=== PATIENT | male | born 1965 | race Hispanic/Latino ===

== ENCOUNTER 2020-07-11 07:22 | Inpatient (IN) | payer OTHER, SELFPAY ==
[2020-07-11 08:07] LABS: Hemoglobin 7.7 g/dL (14.0-18.0); Mean Corpuscular Hemoglobin 44.2 pg (27.0-31.0); RBC Distribution Width 23.7 % (11.5-14.5); Red Blood Cell (RBC) Count 1.74 mill/uL (4.70-6.10)
[2020-07-11 08:22] LABS: ALT (SGPT) 34 U/L (8-55); AST (SGOT) 55 U/L (5-34); Albumin 4.6 g/dL (3.5-5.0); Alkaline Phosphatase 51 U/L (40-110); Anion Gap 15 mmol/L (10-20); BUN (Urea Nitrogen) 19 mg/dL (8.4-25.7); Bilirubin, Total 2.4 mg/dL (0.2-1.2); Calc. Creatinine Clearance 0 mL/min (70-130); Calcium 8.8 mg/dL (7.8-10.44); Carbon Dioxide 25 mmol/L (22-29); Chloride 104 mmol/L (98-107); Globulin 2.7 g/dL (2.4-3.5); Glucose 109 mg/dL (70-105); Lipase 16 U/L (8-78); Potassium 3.6 mmol/L (3.5-5.1); Protein, Total 7.3 g/dL (6.0-8.3); Sodium 140 mmol/L (136-145)
[2020-07-11 08:31] LABS: Bilirubin 1+ (Negative); Blood, Urine Trace (Negative); Clarity Clear (Clear); Glucose, Urine (Dipstick) Normal (Negative); Ketone, Urine 150 mg/dL (Negative); Leukocyte Negative Leu/uL (Negative); Nitrite Negative (Negative); Protein, Urine (Dipstick) 100 mg/dL (Neg-Trace); RBC/HPF 0-3 HPF (0-3); Specific Gravity, Urine 1.031 (1.002-1.036); Squamous Epithelial None Seen HPF (0-3); Urobilinogen 6 mg/dL (Less than 2)
[2020-07-11 08:41] LABS: Bacteria/HPF 1+ HPF (None Seen)
[2020-07-11 08:47] LABS: #Lymphocytes 0.9 thou/uL (1.20-3.40); #Monocytes 0.1 thou/uL (0.11-0.59); #Neutrophils 2.1 thou/uL (1.40-6.50); %Basophils 0.7 % (0.0-1.0); %Eosinophils 1.2 % (0.0-10.0); %Lymphocytes 29.8 % (21.0-51.0); %Monocytes 2.6 % (0.0-10.0); %Neutrophils 65.7 % (42.0-75.0); Anisocytosis MODERATE=16-30 cells (100X) (0-5/hpf); MDiff Complete? YES; Macrocytosis MODERATE=16-30 cells (100X) (0-5/hpf); Microcytosis SLIGHT = 6-15 cells (100X) (0-5/hpf); Platelet Count 134 thou/uL (130-400); Polychromasia SLIGHT = 2-3 cells (100X) (0-2/hpf); Target Cells SLIGHT = 2-5 cells (100X) (0-1/hpf); Tear Drops SLIGHT = 2-5 cells (100X) (0-1/hpf); White Blood Cell (WBC) Count 3.2 thou/uL (4.8-10.8)
--- NOTE | 2020-07-11 09:25 | CT ---
CT OF THE ABDOMEN AND PELVIS WITH IV CONTRAST INDICATION: Nausea and vomiting COMPARISON: None FINDINGS: ABDOMEN: Lung bases: Clear Liver: No focal lesion. Gallbladder: Normal appearing. Pancreas: Normal. Adrenal glands: Normal. Spleen: Normal. Kidneys and ureters: There is a tiny subcentimeter hypodensity involving the mid right kidney that is difficult characterize due to its size. No hydronephrosis is evident. Vasculature: Normal. Lymph nodes:No lymphadenopathy. Free fluid in abdomen:No free fluid is evident. PELVIS: Small and large bowel: There is a mild amount retained stool within the colon. Small bowel is of norm al caliber. Visualized stomach reveals no definite acute abnormality. Appendix:Normal Bladder: Normal. Rectal and perirectal soft tissues:Normal. Reproductive structures: Prostate gland is enlarged measuring 5.8 cm. Free fluid in pelvis: Minimal to mild free fluid Lymphadenopathy pelvis: No lymphadenopathy is evident. Osseous structures: No acute osseous abnormality. No destructive osteolytic or osteoblastic lesion i s identified. There is scattered degenerative and osteoarthritic changes. Soft tissues:Normal. IMPRESSION: 1. No acute abnormality. 2. Tiny right mid renal hypodensity, difficult characterize due to its size. 3. Mild amount retained stool within colon. 4. Prostate enlargement.
[2020-07-11 11:09] LABS: Bilirubin, Direct 0.9 mg/dL (0.1-0.3); Bilirubin, Total 2.4 mg/dL (0.2-1.2)
[2020-07-11] MEDS ORDERED: Ondansetron PF 4 MG/2 ML Vial ONE (12:03)
[2020-07-11] MEDS ORDERED: Ondansetron ODT 4 MG TAB PO PRN (12:27)
[2020-07-11] MEDS ORDERED: Pantoprazole 40 MG VIAL IVP SCH (13:00)
--- NOTE | 2020-07-11 13:17 | HP ---
CHIEF COMPLAINT: Vomiting. PRIMARY CARE PROVIDER: Annie Garrett MD HISTORY OF PRESENT ILLNESS: This is a 55-year-old male with history of coronary artery disease and 4-vessel bypass in 2013, hypertension, dyslipidemia, who presents to the emergency room today with nausea and vomiting. The history is obtained from the patient and his , who report that it has been going on for a month. He denies any precipitating factors or relieving factors. They report that it started slowly and has increased to the point that he has been unable to take anything by mouth since yesterday. He denies any pain, denies any diarrhea or constipation. He tried to take Pepto-Bismol a few times and denies any relief. He does not note any chest pain except from soreness in the lower part of his chest from vomiting. He denies any shortness of breath. The patient denies any prior evaluation of the GI tract. He notes a few days ago, having dysuria, however, that has resolved. He also noticed a few days ago, having burning in his throat with the aspirin. There have been no other symptoms. In the emergency room, the patient received 8 mg IV Zofran, 1 L of normal saline, and Hospitalist called for admission. ALLERGIES: NO KNOWN DRUG ALLERGIES. CURRENT MEDICATIONS: Reconciled with the patient. 1. Aspirin 325 mg daily. 2. Lovastatin 10 mg in the evening. 3. Atenolol 25 mg daily. 4. Fish oil 2 tablets daily. PAST MEDICAL HISTORY: 1. Hypertension. 2. Dyslipidemia. 3. History of [place] and CABG in 2013. PAST SURGICAL HISTORY: CABG, 4-vessel in 2013. SOCIAL HISTORY: The patient is and his is his surrogate decision maker, he is a full code. He denies any alcohol or tobacco. FAMILY HISTORY: Negative for any gastrointestinal problems. REVIEW OF SYSTEMS: Negative for chest pain, shortness of breath, fevers, or chills. Positive for the dysuria that has resolved and the burning in his throat with aspirin a few times. All remaining review of systems is reviewed and negative. PHYSICAL EXAMINATION: VITAL SIGNS: Blood pressure 117/76, pulse 69, respirations 19, temperature 98, sat is 100% on room air. GENERAL: Awake, alert, responsive, not in apparent distress. Able to speak in full sentences. HEENT: Tympanic membranes are translucent. His pupils are equal and round, he does have some slight scleral icterus. Oral mucosa is pink and moist. NECK: Supple, nontender. LYMPHATICS: No palpable cervical or supraclavicular lymphadenopathy. LUNGS: Clear to auscultation bilateral with good air movement. HEART: Normal S1, S2. Regular rate and rhythm. No significant murmur. ABDOMEN: Soft. Present bowel sounds. Nontender, nondistended. SKIN: No visible rashes. EXTREMITIES: No clubbing, cyanosis, or edema. VASCULAR: 2+ dorsalis pedis pulses. NEUROLOGIC: No focal deficits. PSYCH: Appears euthymic. LABORATORY DATA: CBC; 3.2, 7.7, 21.4, 134. Chemistry; 140, 3.6, 104, 25, 19, 0.74, 109. T-bilirubin 2.4, AST 55, ALT 34, alkaline phosphatase 51, total protein 7.3, albumin 4.6. EKG is personally reviewed, sinus rhythm, normal axis, QT corrected 452, normal DC and QRS intervals. Abnormal R-wave progression. No ST changes. Urinalysis; present protein and ketones, 1+ bilirubin, positive urobilinogen, 4 to 6 white blood cells, 1+ bacteria. CT abdomen and pelvis, which shows no acute abnormality, tiny right mid renal hypodensity, difficult to characterize due to size, mild amount of retained stool within the colon, and prostate enlargement. IMPRESSION: 1. Nausea, vomiting, unable to take p.o., of unknown etiology. Differential diagnosis includes gastritis and ulcer process. 2. Leukopenia and anemia, of unknown chronicity and etiology. 3. Hypertension, controlled. 4. Dyslipidemia. 5. Elevated bilirubin and mildly elevated AST. PLAN: 1. Inpatient status in the hospital. 2. With the patient's cardiac history, we will monitor on telemetry. 3. IV fluid hydration, Zofran as needed. Consultation with GI as endoscopy is anticipated. 4. We will start IV Protonix. 5. Continue the atenolol with hold parameters. 6. We will hold the statin, aspirin, and fish oil for now. 7. Check folic acid, vitamin B12, iron, ferritin levels, as well as guaiac stool given the anemia. 8. Anticipated length of stay is at least 2 midnights given the severity of nausea and vomiting at time of admission. 9. DVT prophylaxis with SCDs. 10. GI prophylaxis as noted above. We will use IV Protonix as treatment. 11. Code status is full. Surrogate decision maker is the patient's as noted above. Reviewed the plan of care with the patient and his who demonstrate understanding. No questions or further needs at the end of evaluation. Job ID: [id number]
[2020-07-11] MEDS ORDERED: Iopamidol-370 76% 500 ML 1 ML ONE (13:38)
[2020-07-11] MEDS: Sodium Chloride 0.9% 1,000 ML IV SCH (15:37)
[2020-07-11 16:05] LABS: Troponin I Less than 0.010 ng/mL (< 0.028)
[2020-07-11] MEDS: Ondansetron PF 4 MG/2 ML Vial IVP PRN (17:33)
--- NOTE | 2020-07-11 18:35 | CON ---
DATE OF CONSULTATION: 07/11/2020 CONSULTING PHYSICIAN: Radha Garcia MD REASON FOR CONSULTATION: Vomiting. HISTORY OF PRESENT ILLNESS: Mr. Bolanos is a pleasant 55-year-old gentleman from [facility], who for the past couple months has been having vomiting intermittently. It has gotten to the point over the past several days he has not been able to hold down any food or liquids. He would eat and had a little bit of a sour feeling in his stomach or some discomfort and then vomit. This would be food or liquids. More recently, it was just bile. He has lost about 20 pounds over the past month. He has had no hematemesis, melena, or hematochezia. He may have a little bit of reflux at times. He has not sought care for this. He typically sees Dr. Garrett, his primary doctor, but has not been to see her this year. He does have a prior history of bypass in 2013, hypertension, and dyslipidemia. He denies any history of melena, hematochezia, hematemesis, or dysphagia. He denies any chest pain, shortness of breath, or dyspnea on exertion. He has been working as a branch controller. He denies any pain or change in bowel function. His bowels have been moving fine. His admission H and P notes he has tried Pepto-Bismol a few times, not having any discomfort. He vomits a lot and his upper abdomen will be sore. He denies any prior history of ulcers, family history of stomach cancers, or personal history of stomach disorders. He had a CAT scan in the emergency room, which was nondiagnostic. He notes when he does take his aspirin, he does get some burning in his throat at times. In the emergency room, he received some IV fluids and some Zofran. He has been admitted for further evaluation. ALLERGIES: NONE KNOWN. MEDICATIONS: 1. Aspirin. 2. Losartan. 3. Atenolol. 4. Fish oil. 5. Tenormin. 6. Zofran. 7. Protonix 40 IV daily. 8. Normal saline at 100. PAST MEDICAL HISTORY: Hypertension, dyslipidemia, [place] and CABG in 2013. PAST SURGICAL HISTORY: Four-vessel bypass in 2013, no other surgeries. SOCIAL HISTORY: The patient is . His is at the bedside. He works as a supervisor [employer]. He does not drink, smoke, or use drugs. FAMILY HISTORY: Negative for gastric cancer, colon cancer, or GI disorders. No diabetes. REVIEW OF SYSTEMS: As per HPI, otherwise negative for shortness of breath, dyspnea on exertion, chest pain, swelling, edema, or orthopnea. PHYSICAL EXAMINATION: VITAL SIGNS: Temperature is 99, pulse 68, blood pressure 130/70. GENERAL: He is well nourished, well developed, in no distress. LUNGS: Clear. HEART: Regular rate and rhythm without clicks or murmurs. ABDOMEN: Soft and nontender. There is no palpable hepatosplenomegaly. No hernias or masses. There is no adenopathy in the inguinal areas, neck, or supraclavicular areas. There is no muscle wasting. EXTREMITIES: No clubbing, cyanosis, or edema. SKIN: Warm and dry. LABORATORY DATA: White count 3.2; hemoglobin 7.7, it was 15 in 2014; MCV 123; platelet count 134; differential normal. Sodium 140, potassium 3.6, BUN and creatinine 19 and 0.7, glucose 109, bilirubin 2.4, AST 55, ALT 34, alkaline phosphatase 51. On 03/05, bilirubin 1.3. No records of previous fractionation of bilirubin. TSH was 0.8 in 2018. TSH was 1 in 2015. Lipase 16 today. Direct bilirubin 0.9. ASSESSMENT: 1. Severe nausea, vomiting, and inability to hold anything down. Etiology is unclear. CAT scan showed no overt causes. 2. Leukopenia, anemia, and macrocytosis. B12 deficiency will be a concern. 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 The patient denies alcohol use. RECOMMENDATIONS: EGD tomorrow. B12, folate, and thiamine. Upper endoscopy tomorrow. Concerns would include gastric cancer, ulcers, and gastric lymphoma, although imaging studies show no signs of malignancy. Ulcer disease is possible as well with pyloric stenosis. Biliary tract disease would be a concern as well, although no stones were seen on CT. If we do not find anything on the upper endoscopy, consider ultrasound. My review of the CT shows no overt abnormalities, atypical thickening, or adenopathy in the upper abdomen. Pancreas is mildly generous in size, but there are no discrete or focal masses. Job ID: [id number]
[2020-07-11 19:14] LABS: Troponin I Less than 0.010 ng/mL (< 0.028)
[2020-07-11] MEDS ORDERED: Metoclopramide HCl 10 MG/2 ML VIAL IVP PRN (19:43)
--- NOTE | 2020-07-11 19:44 | PDOC.BPN ---
- Brief Progress Note Encounter Date: 07/11/20 Encounter Time: 19:43 Message sent by nurse that pt continues to have n/v. I ordered prn reglan, and prn zofran was ordered on admission. Pt to have an EGD tomorrow.
[2020-07-12 00:22] LABS: SARS-CoV-2 MS2 Positive; SARS-CoV-2 N Gene Negative; SARS-CoV-2 S Gene Negative; SARS-CoV-2 by NAA Not Detected (NotDetected); SARS-CoV-2 orf1ab Negative
[2020-07-12] MEDS: Sodium Chloride 0.9% 1,000 ML IV SCH ×4 (01:36→19:59)
[2020-07-12] MEDS: Ondansetron PF 4 MG/2 ML Vial IVP PRN ×2 (03:33→23:40)
[2020-07-12 04:49] LABS: #Eosinphils 0.1 thou/uL (0.0-0.7); #Lymphocytes 1.1 thou/uL (1.20-3.40); #Monocytes 0.1 thou/uL (0.11-0.59); #Neutrophils 1.9 thou/uL (1.40-6.50); %Basophils 0.1 % (0.0-1.0); %Eosinophils 1.8 % (0.0-10.0); %Lymphocytes 35.1 % (21.0-51.0); %Monocytes 2.7 % (0.0-10.0); %Neutrophils 60.2 % (42.0-75.0); Hemoglobin 6.6 g/dL (14.0-18.0); Mean Corpuscular HGB CONC 34.7 g/dL (32.0-36.0); Mean Corpuscular Hemoglobin 42.6 pg (27.0-31.0); Mean Platelet Volume 11.6 fL (7.4-10.4); Platelet Count 127 thou/uL (130-400); RBC Distribution Width 23.6 % (11.5-14.5); Red Blood Cell (RBC) Count 1.54 mill/uL (4.70-6.10); White Blood Cell (WBC) Count 3.2 thou/uL (4.8-10.8)
[2020-07-12 05:05] LABS: Anion Gap 15 mmol/L (10-20); BUN (Urea Nitrogen) 15 mg/dL (8.4-25.7); Calc. Creatinine Clearance 131 mL/min (70-130); Carbon Dioxide 20 mmol/L (22-29); Chloride 108 mmol/L (98-107); Glucose 66 mg/dL (70-105); Iron 184 ug/dL (65-175); Potassium 3.4 mmol/L (3.5-5.1); Sodium 140 mmol/L (136-145)
[2020-07-12 05:29] LABS: Ferritin 554.21 ng/mL (22-322); Vitamin B12 Less than 109 pg/mL (211-911)
[2020-07-12] MEDS: Pantoprazole 40 MG VIAL IVP SCH (08:00)
[2020-07-12] MEDS: Atenolol 25 MG TAB PO SCH (08:00)
[2020-07-12] MEDS ORDERED: FLU VACC QS2020-21(6MOS UP)/PF 60 MCG/0.5 ML SYRINGE IM ONE (09:00)
[2020-07-12 09:52] LABS: Iron 193 ug/dL (65-175); Iron Binding Capacity, Total 239 mcg/dL (261-462)
[2020-07-12] MEDS ORDERED: Lidocaine 1% PF 5 ML VIAL ONE (11:06)
[2020-07-12] MEDS ORDERED: PROPOFOL 200 MG/20 ML VIAL ONE (11:06)
[2020-07-12] MEDS ORDERED: Cyanocobalamin 1000 MCG/ML VIAL IM SCH (12:00)
--- NOTE | 2020-07-12 12:00 | PDOC.HOSPP ---
- Subjective Encounter Date: 07/12/20 Encounter Time: 11:59 Subjective: Mr. Bolanos was seen today in follow-up of nausea and vomiting, weight loss and severe anemia. He says the nausea is a little better. He denies abdominal pain. Symptoms have been for the past month. - Objective Vital Signs & Weight: Vital Signs (12 hours) Temp Pulse Pulse Resp BP BP Pulse Ox 07/12/20 11:03 98.7 F 67 18 112/62 99 07/12/20 10:51 98.4 F 66 16 122/67 07/12/20 10:46 98 F 65 16 112/64 99 07/12/20 07:57 98 F 63 14 116/59 L 96 07/12/20 03:27 98.5 F 66 16 91/54 L Weight Weight 160 lb 9 oz I&O: 07/11/20 07/12/20 07/13/20 06:59 06:59 06:59 Intake Total 230 0 Output Total 0 Balance 230 0 Result Diagrams: 07/12/20 04:19 07/12/20 04:19 Hospitalist ROS - Medication Medications: Active Medications Generic Name Dose Route Start Last Admin Trade Name Freq PRN Reason Stop Dose Admin Atenolol 25 mg 07/12/20 09:00 07/12/20 08:00 Atenolol 25 Mg Tab PO Not Given DAILY LOCO Sodium Chloride 1,000 mls @ 100 mls/hr 07/11/20 12:30 07/12/20 08:03 Normal Saline 0.9% IV Not Given .Q10H LOCO Metoclopramide HCl 5 mg 07/11/20 19:43 07/11/20 20:18 Metoclopramide Hcl 10 Mg/2 Ml Vial IVP 5 mg Q6H PRN Administration Nausea/Vomiting Ondansetron HCl 4 mg 07/11/20 12:27 07/12/20 03:33 Ondansetron Pf 4 Mg/2 Ml Vial IVP 4 mg Q6H PRN Administration Nausea/Vomiting Pantoprazole Sodium 40 mg 07/12/20 09:00 07/12/20 08:00 Pantoprazole 40 Mg Vial IVP 40 mg DAILY LOCO Administration - Exam Eye: PERRL, anicteric sclera Heart: RRR, no gallops, normal peripheral pulses, murmur present (slight flow murmur), II/IV Respiratory: CTAB, no wheezes, no rales, no ronchi, normal chest expansion Gastrointestinal: soft, non-tender, non-distended, normal bowel sounds, no palpable masses, no hepatomegaly Extremities: no cyanosis, no clubbing, no edema Hosp A/P (1) Nausea and vomiting Code(s): R11.2 - NAUSEA WITH VOMITING, UNSPECIFIED Status: Acute (2) Macrocytic anemia with vitamin B12 deficiency Code(s): D51.9 - VITAMIN B12 DEFICIENCY ANEMIA, UNSPECIFIED Status: Acute (3) Weight loss Status: Chronic (4) Hypertension Code(s): I10 - ESSENTIAL (PRIMARY) HYPERTENSION Status: Chronic (5) CAD (coronary artery disease) Code(s): I25.10 - ATHSCL HEART DISEASE OF [place] CORONARY ARTERY W/O ANG PCTRS Status: Acute (6) Hypokalemia Code(s): E87.6 - HYPOKALEMIA Status: Acute - Plan * Nausea and vomiting with Weight loss- ? etiology- symptoms are a bit better controlled. Plan is for EGD today * Macrocytic anemia- his B12 level is low. This may be due to poor oral intake, given the nausea and vomiting for the past month. with limited oral inatke Will give a dose of vitamin B12 IM today * HTN- blood pressure is stable * CAD- stable * Hypokalemia- from GI losses- will replace
[2020-07-12] MEDS ORDERED: Ondansetron HCl/PF 4 MG/2 ML Vial IVP PRN (14:03)
[2020-07-12] MEDS ORDERED: Promethazine HCl 25 MG/ML VIAL IM PRN (14:03)
[2020-07-12] MEDS ORDERED: Promethazine HCl 25 MG/ML VIAL SLOW IVP PRN (14:03)
--- NOTE | 2020-07-12 16:24 | OP ---
DATE OF PROCEDURE: 07/12/2020 PREPROCEDURE DIAGNOSES: 1. Weight loss. 2. Nausea and vomiting, early satiety. Labs here showed severe anemia with an MCV of 120 and a low B12 of 109, normal folate, iron elevated at 184, with a ferritin of 661. ANESTHESIA: TIVA. PROCEDURE PERFORMED: Esophagogastroduodenoscopy with biopsy. POSTPROCEDURE DIAGNOSES: 1. Normal esophagus with normal relaxation of lower esophageal sphincter. No evidence of esophagitis or achalasia. 2. Normal stomach in forward and retroflexed views. Random biopsies were taken from the body and antrum of the stomach and submitted to Pathology. There are some submucosal areas of hemorrhage in the cardia, consistent with emetogenic injury. There is normal distention with no signs of infiltrative disease. 3. Duodenum with slight scalloping in the bulb and the proximal second portion of the duodenum. Biopsies taken to rule out celiac. 4. Normal duodenum to the third portion otherwise. RECOMMENDATIONS: 1. IV PPI. 2. Aggressive iron replacement. 3. Await biopsies. 4. If symptoms persist, consider upper GI small bowel follow through, or evaluation for other causes of nausea, vomiting HIDA scan. PROCEDURE IN DETAIL: After the patient was informed of the risks, benefits, and possible complications of endoscopy including perforation, reaction to medication, and aspiration, informed consent was obtained. The patient was brought to endoscopy suite, where he was sedated in gradual fashion. Once he was comfortable, a bite-block was placed in the incisural orifice. The endoscope was advanced into the esophagus, stomach, into the second and third portions of the duodenum and slowly removed. There was good visualization of the mucosa. There was no mass, lesions, or AV malformations identified in the esophagus, stomach, or duodenum except for some mild villous blunting in the bulb and proximal second portion of the duodenum, which were biopsied. There were no signs of obstruction distally with clear bile emanating from the ampulla and migrating distally into the bowel. There were no retained contents in the stomach and there was normal distensibility of the stomach. The stomach was normal in forward and retroflexed views. Biopsies were taken from the body of the stomach and antrum in light of the B12 deficiency. Retroflexed views showed no evidence of lesions at the GE junction and again normal distensibility of the proximal stomach with no signs of infiltrative process. The scope was removed. The patient tolerated the procedure well. There were no complications. Job ID: [id number]
--- NOTE | 2020-07-12 16:57 | RAD ---
RADIOGRAPH CHEST 2 VIEWS: DATE: 07/12/2020 HISTORY: 55-year-old male with 20 pound weight loss FINDINGS: The lungs are clear. The cardiomediastinal silhouette and hilar shadows appear normal. There is no pl eural effusion or pneumothorax. There are sternal wires. IMPRESSION: 1) evidence of previous open-heart surgery. 2) no evidence of active disease
[2020-07-13] MEDS: Sodium Chloride 0.9% 1,000 ML IV SCH ×2 (02:45→16:53)
[2020-07-13 05:31] LABS: Anion Gap 14 mmol/L (10-20); BUN (Urea Nitrogen) 10 mg/dL (8.4-25.7); Calc. Creatinine Clearance 139 mL/min (70-130); Calcium 7.7 mg/dL (7.8-10.44); Carbon Dioxide 21 mmol/L (22-29); Chloride 105 mmol/L (98-107); Glucose 87 mg/dL (70-105); Potassium 3.2 mmol/L (3.5-5.1); Sodium 137 mmol/L (136-145)
[2020-07-13 05:41] LABS: Syphilis Antibody Nonreactive (Nonreactive); Syphilis Antibody Index 0.05 S/CO (<1.00 Non-Reactive)
[2020-07-13 06:02] LABS: Band 15 % (5-11); Hemoglobin 7.2 g/dL (14.0-18.0); Lymphocytes 10 % (21-51); MDiff Complete? YES; Mean Corpuscular HGB CONC 35.9 g/dL (32.0-36.0); Mean Corpuscular Hemoglobin 41.4 pg (27.0-31.0); Mean Platelet Volume 11.6 fL (7.4-10.4); Metamyelocyte 1 % (0-0); Monocytes 1 % (0-10); Neutrophil 73 % (42-75); Platelet Count 114 thou/uL (130-400); Platelet Morphology Comment Appears Decreased; Red Blood Cell (RBC) Count 1.74 mill/uL (4.70-6.10); White Blood Cell (WBC) Count 9.5 thou/uL (4.8-10.8)
[2020-07-13] MEDS: Atenolol 25 MG TAB PO SCH (08:46)
[2020-07-13] MEDS: Pantoprazole 40 MG VIAL IVP SCH (08:47)
--- NOTE | 2020-07-13 09:14 | PDOC.HOSPP ---
- Subjective Encounter Date: 07/13/20 Encounter Time: 10:00 Subjective: Patient with a little nausea and vomiting overnight but overall doing much better. Ate and tolerated breakfast this morning and no current nausea. - Objective Vital Signs & Weight: Vital Signs (12 hours) Temp Pulse Resp BP Pulse Ox 07/13/20 08:50 98.5 F 67 20 112/62 99 07/13/20 02:48 98.8 F 71 14 99/58 L 99 07/12/20 23:50 98.1 F Weight Weight 158 lb 1.6 oz I&O: 07/12/20 07/13/20 07/14/20 06:59 06:59 06:59 Intake Total 230 1570 Output Total 0 800 Balance 230 770 Result Diagrams: 07/13/20 04:23 07/13/20 04:23 Hospitalist ROS - Review of Systems Constitutional: denies: fever, chills Respiratory: denies: cough, shortness of breath Cardiovascular: denies: chest pain, palpitations Gastrointestinal: denies: abdominal pain Genitourinary: denies: dysuria - Medication Medications: Active Medications Generic Name Dose Route Start Last Admin Trade Name Freq PRN Reason Stop Dose Admin Atenolol 25 mg 07/12/20 09:00 07/13/20 08:46 Atenolol 25 Mg Tab PO 25 mg DAILY LOCO Administration Sodium Chloride 1,000 mls @ 100 mls/hr 07/11/20 12:30 07/13/20 02:45 Normal Saline 0.9% IV 1,000 mls .Q10H LOCO Administration Metoclopramide HCl 5 mg 07/11/20 19:43 07/11/20 20:18 Metoclopramide Hcl 10 Mg/2 Ml Vial IVP 5 mg Q6H PRN Administration Nausea/Vomiting Ondansetron HCl 4 mg 07/11/20 12:27 07/12/20 23:40 Ondansetron Pf 4 Mg/2 Ml Vial IVP 4 mg Q6H PRN Administration Nausea/Vomiting Pantoprazole Sodium 40 mg 07/12/20 09:00 07/13/20 08:47 Pantoprazole 40 Mg Vial IVP 40 mg DAILY LOCO Administration - Exam General Appearance: NAD, awake alert ENT: moist mucosa Heart: RRR, no murmur, no gallops, no rubs Respiratory: CTAB, no wheezes, no rales, no ronchi Gastrointestinal: soft, non-tender, non-distended, normal bowel sounds Psychiatric: normal affect, normal behavior, A&O x 3 Hosp A/P - Plan (1) Nausea and vomiting Code(s): R11.2 - NAUSEA WITH VOMITING, UNSPECIFIED Status: Acute (2) Macrocytic anemia with vitamin B12 deficiency Code(s): D51.9 - VITAMIN B12 DEFICIENCY ANEMIA, UNSPECIFIED Status: Acute (3) Weight loss Status: Chronic (4) Hypertension Code(s): I10 - ESSENTIAL (PRIMARY) HYPERTENSION Status: Chronic (5) CAD (coronary artery disease) Code(s): I25.10 - ATHSCL HEART DISEASE OF [place] CORONARY ARTERY W/O ANG PCTRS Status: Acute (6) Hypokalemia Code(s): E87.6 - HYPOKALEMIA Status: Acute - Plan * Nausea and vomiting with Weight loss- ? etiology- symptoms are a bit better controlled. EGD without gross abnormality. Continue workup as per GI. * Macrocytic anemia- his B12 level is low. This may be due to poor oral intake, given the nausea and vomiting for the past month. with limited oral inatke Gave a dose of vitamin B12 IM yesterday. * HTN- blood pressure is stable * CAD- stable * Hypokalemia- from GI losses- continue replacing
[2020-07-13] MEDS ORDERED: Potassium Chloride 20 MEQ TAB PO SCH (09:15)
[2020-07-13] MEDS ORDERED: GASTROGRAFIN 30 ML BOT ONE (09:38)
[2020-07-13] MEDS ORDERED: Cyanocobalamin 1000 MCG/ML VIAL IM SCH (12:00)
--- NOTE | 2020-07-13 12:26 | PRG ---
DATE OF SERVICE: 07/13/2020 SUBJECTIVE: Mr. Bolanos did pretty good yesterday, but then about 11 last night, threw up. States when he tried to drink some liquids, this happened. OBJECTIVE: VITAL SIGNS: Temperature is 98, pulse 67, and blood pressure 112/62. ABDOMEN: Soft, nontender. IMAGING STUDIES: Chest x-ray yesterday was normal. LABORATORY DATA: White count 9.5, hemoglobin 7.2, platelet count 114, MCV 115. Sodium 137, potassium 3.2, BUN and creatinine 10 and 0.6. Ferritin was 661, TIBC 239, iron 193, B12 less than 109, folate 12. RPR negative. Total IgA 173, tTG pending. Small bowel biopsies, gastric biopsies pending. ASSESSMENT: 1. Persistent vomiting with reported 20-pound weight loss. This was worse over the past couple of months. EGD really did not show anything other than some scalloping in the bulb and proximal second part of the duodenum. There was no evidence of linitis plastica, infiltrative process in the stomach. Biopsies were obtained from both the stomach and the duodenum are pending. 2. B12 insufficiency. It is unclear if this is related to a gastritis or possibly small-bowel disease. Pancreatic insufficiency would be a possible cause as well. CT showed no signs of small-bowel disease or pancreatic disease, although this was without oral contrast, did have IV. 3. Chest x-ray normal. 4. RPR negative. RECOMMENDATIONS: 1. IM B12 for a couple of days, then oral B12. 2. Await biopsies. 3. Ultrasound of gallbladder. 4. Small bowel follow-through. We will continue to follow with you. Job ID: [id number]
--- NOTE | 2020-07-13 13:18 | ULT ---
Ultrasound of [facility] upper quadrant: 07/13/2020 COMPARISON:None available HISTORY:Persistent vomiting TECHNIQUE: Multiplanar grayscale sonographic imaging of [facility] upper quadrant FINDINGS:Imaged portions of the pancreas appear unremarkable. No focal liver lesion or intrahepatic biliary dilatation is noted. The right kidney measures 10.6 cm in craniocaudal dimension and demonstrates no stone, hydronephrosis , or mass. The common bile duct measures 4-5 mm, within normal limits. There is a probable gallbladder polyp measuring 5 mm. There is a prominent mobile sludge ball within the gallbladder measuring approximately 3.6 cm. The lead business systems analyst reports a negative Erickson's sign. No gallbladder wall thickening. IMPRESSION:Prominent sludge ball. No evidence for cholelithiasis, acute cholecystitis, or biliary dil atation.
[2020-07-13 14:18] VITALS: BMI 24.7
--- NOTE | 2020-07-13 15:41 | RAD ---
Small bowel follow-through HISTORY: Nausea. Weight loss. FINDINGS: Single column barium evaluation shows normal mucosal pattern of the small bowel. Normal joce iber. Normal distribution of small bowel loops. The terminal ileum was reached at 1 hour and has a normal a ppearance. IMPRESSION : No abnormalities are demonstrated.
[2020-07-14] MEDS: Sodium Chloride 0.9% 1,000 ML IV SCH ×3 (04:13→21:38)
[2020-07-14 05:04] LABS: #Basophils 0.1 thou/uL (0.0-0.2); #Eosinphils 0.1 thou/uL (0.0-0.7); #Lymphocytes 1.2 thou/uL (1.20-3.40); #Monocytes 0.1 thou/uL (0.11-0.59); #Neutrophils 3.2 thou/uL (1.40-6.50); %Basophils 1.2 % (0.0-1.0); %Eosinophils 1.2 % (0.0-10.0); %Lymphocytes 26.2 % (21.0-51.0); %Monocytes 2.1 % (0.0-10.0); %Neutrophils 69.3 % (42.0-75.0); Hemoglobin 6.6 g/dL (14.0-18.0); Mean Corpuscular HGB CONC 35.3 g/dL (32.0-36.0); Mean Corpuscular Hemoglobin 41.4 pg (27.0-31.0); Mean Platelet Volume 11.6 fL (7.4-10.4); Platelet Count 103 thou/uL (130-400); RBC Distribution Width 26.5 % (11.5-14.5); Red Blood Cell (RBC) Count 1.59 mill/uL (4.70-6.10); White Blood Cell (WBC) Count 4.6 thou/uL (4.8-10.8)
[2020-07-14 05:17] LABS: Anion Gap 13 mmol/L (10-20); BUN (Urea Nitrogen) 10 mg/dL (8.4-25.7); Calc. Creatinine Clearance 139 mL/min (70-130); Calcium 7.6 mg/dL (7.8-10.44); Carbon Dioxide 22 mmol/L (22-29); Chloride 108 mmol/L (98-107); Glucose 85 mg/dL (70-105); Potassium 3.7 mmol/L (3.5-5.1); Sodium 139 mmol/L (136-145)
--- NOTE | 2020-07-14 07:21 | PDOC.HOSPP ---
- Subjective Encounter Date: 07/14/20 Encounter Time: 10:00 Subjective: Patient feeling much better. Tolerated diet well this morning. - Objective Vital Signs & Weight: Vital Signs (12 hours) Temp Pulse Resp BP Pulse Ox 07/14/20 04:00 98.4 F 53 L 18 96/55 L 95 07/14/20 00:00 91/58 L 07/13/20 20:00 98.0 F 58 L 12 102/51 L 98 Weight Admit Weight 158 lb 11.2 oz Weight 158 lb 1.6 oz I&O: 07/13/20 07/14/20 07/15/20 06:59 06:59 06:59 Intake Total 1570 Output Total 800 Balance 770 Result Diagrams: 07/14/20 04:34 07/14/20 04:34 Hospitalist ROS - Review of Systems Constitutional: denies: fever, chills Respiratory: denies: cough, shortness of breath Cardiovascular: denies: chest pain, palpitations Gastrointestinal: denies: nausea, vomiting, abdominal pain, diarrhea - Medication Medications: Active Medications Generic Name Dose Route Start Last Admin Trade Name Freq PRN Reason Stop Dose Admin Atenolol 25 mg 07/12/20 09:00 07/13/20 08:46 Atenolol 25 Mg Tab PO 25 mg DAILY LOCO Administration Sodium Chloride 1,000 mls @ 100 mls/hr 07/11/20 12:30 07/14/20 04:13 Normal Saline 0.9% IV 1,000 mls .Q10H LOCO Administration Metoclopramide HCl 5 mg 07/11/20 19:43 07/11/20 20:18 Metoclopramide Hcl 10 Mg/2 Ml Vial IVP 5 mg Q6H PRN Administration Nausea/Vomiting Ondansetron HCl 4 mg 07/11/20 12:27 07/12/20 23:40 Ondansetron Pf 4 Mg/2 Ml Vial IVP 4 mg Q6H PRN Administration Nausea/Vomiting Pantoprazole Sodium 40 mg 07/12/20 09:00 07/13/20 08:47 Pantoprazole 40 Mg Vial IVP 40 mg DAILY LOCO Administration - Exam General Appearance: NAD, awake alert ENT: moist mucosa Heart: RRR, no murmur, no gallops, no rubs Respiratory: CTAB, no wheezes, no rales, no ronchi Gastrointestinal: soft, non-tender, non-distended, normal bowel sounds Psychiatric: normal affect, normal behavior, A&O x 3 Hosp A/P - Plan (1) Nausea and vomiting Code(s): R11.2 - NAUSEA WITH VOMITING, UNSPECIFIED Status: Acute (2) Macrocytic anemia with vitamin B12 deficiency Code(s): D51.9 - VITAMIN B12 DEFICIENCY ANEMIA, UNSPECIFIED Status: Acute (3) Weight loss Status: Chronic (4) Hypertension Code(s): I10 - ESSENTIAL (PRIMARY) HYPERTENSION Status: Chronic (5) CAD (coronary artery disease) Code(s): I25.10 - ATHSCL HEART DISEASE OF [place] CORONARY ARTERY W/O ANG PCTRS Status: Acute (6) Hypokalemia Code(s): E87.6 - HYPOKALEMIA Status: Acute - Plan * Nausea and vomiting with Weight loss- ? etiology- symptoms are a bit better controlled. EGD without gross abnormality. US and small bowel follow through without significant abnormality. * Macrocytic anemia- his B12 level is low. This may be due to poor oral intake, given the nausea and vomiting for the past month. with limited oral inatke. Gave a dose of vitamin B12 IM daily x2, can transition to oral Vit B12 now. Hemoglobin remains marginal, consider transfusion. * HTN- blood pressure is stable * CAD- stable * Hypokalemia- from GI losses- continue replacing * Home when cleared by gastroenterology, Dr. Driscoll has written for a HIDA scan and plan on advancing diet after that. If eating well perhaps can be discharged tomorrow.
[2020-07-14] MEDS: Atenolol 25 MG TAB PO SCH (09:42)
[2020-07-14] MEDS: Pantoprazole 40 MG VIAL IVP SCH (09:43)
[2020-07-14] MEDS: Cyanocobalamin (Vitamin B-12) 1,000 MCG TAB PO SCH (09:46)
--- NOTE | 2020-07-14 11:12 | PRG ---
DATE OF SERVICE: 07/14/2020 SUBJECTIVE: Mr. Bolanos says he is doing a lot better. He has been tolerating a full liquid diet. He says he has not had any nausea or vomiting or abdominal pain since yesterday afternoon. He had a normal small bowel follow-through and passed all of that contrast without difficulty. His ultrasound showed biliary sludge. Biopsies are still pending. OBJECTIVE: VITAL SIGNS: Temperature 98.3, pulse 58, blood pressure 101/55, and oxygen saturation 100% on room air. GENERAL: Appearing well, sitting up in bed comfortably. HEART: Regular rate and rhythm. LUNGS: Clear to auscultation bilaterally. ABDOMEN: Nondistended. Bowel sounds are present. Soft, nontender to palpation today. EXTREMITIES: No peripheral edema. LABORATORY STUDIES: WBC 4.6, hemoglobin 6.6, MCV 117, and platelets 103. Syphilis serologies negative. COVID PCR negative. Total IgA normal at 173. Total bilirubin was 2.4, direct bilirubin 0.9, alkaline phosphatase 51, AST 55, and ALT 34. Metabolic panel shows sodium 139, potassium 3.7, BUN 10, and creatinine 0.60. Ferritin 661, iron 193, TIBC 239. Vitamin B12 low at less than 109. Folate 12.2. Lipase was only 16. Tissue transglutaminase is pending. Gastric and duodenal biopsies are pending. IMAGING STUDIES: Small bowel follow-through was normal exam. Abdominal ultrasound showed biliary sludge, but no cholelithiasis. No pericholecystic fluid. No biliary dilation. ASSESSMENT AND PLAN: 1. Nausea and vomiting, chronic, doing well today. 2. Weight loss, rapid weight loss of over 20 pounds over the past month or two, still unclear why. 3. Duodenitis. This was demonstrated on EGD a couple of days ago. Dr. Jordan noted some potential mucosal scalloping. We are still awaiting duodenal biopsy results. Celiac disease remains in the differential. If so, it could help explain the B12 deficiency as well as the weight loss. 4. Biliary sludge. There was no evidence of cholecystitis on his ultrasound yesterday, but he does have biliary sludge. Looking back at LFTs on admission, he does have elevated total bilirubin to 2.4 with direct of 0.9, but essentially normal transaminases. I doubt he does not appear to have any biliary obstructive process. However, biliary dyskinesia would remain on the differential. We will go ahead and obtain a HIDA scan. GI will plan to follow up on biopsy results when they are available as well as HIDA scan results. Regardless, I think if the patient continues to feel well, he could further advance his diet after the HIDA scan is performed, and if doing well, he could potentially be discharged from the hospital to follow up in clinic with Dr. Jordan. Job ID: [id number]
[2020-07-15 05:24] LABS: Anion Gap 13 mmol/L (10-20); BUN (Urea Nitrogen) 5 mg/dL (8.4-25.7); Calc. Creatinine Clearance 142 mL/min (70-130); Calcium 7.9 mg/dL (7.8-10.44); Carbon Dioxide 24 mmol/L (22-29); Chloride 109 mmol/L (98-107); Glucose 82 mg/dL (70-105); Potassium 3.5 mmol/L (3.5-5.1); Sodium 142 mmol/L (136-145)
[2020-07-15 05:32] LABS: #Eosinphils 0.1 thou/uL (0.0-0.7); #Lymphocytes 1.5 thou/uL (1.20-3.40); #Monocytes 0.2 thou/uL (0.11-0.59); #Neutrophils 1.6 thou/uL (1.40-6.50); %Basophils 0.3 % (0.0-1.0); %Eosinophils 3.3 % (0.0-10.0); %Lymphocytes 43.9 % (21.0-51.0); %Monocytes 5.3 % (0.0-10.0); %Neutrophils 47.3 % (42.0-75.0); Hemoglobin 8.7 g/dL (14.0-18.0); Mean Corpuscular HGB CONC 35.9 g/dL (32.0-36.0); Mean Corpuscular Hemoglobin 40.2 pg (27.0-31.0); Mean Platelet Volume 11.6 fL (7.4-10.4); Platelet Count 96 thou/uL (130-400); RBC Distribution Width 26.8 % (11.5-14.5); Red Blood Cell (RBC) Count 2.16 mill/uL (4.70-6.10); White Blood Cell (WBC) Count 3.5 thou/uL (4.8-10.8)
--- NOTE | 2020-07-15 08:07 | PDOC.HOSPP ---
- Subjective Encounter Date: 07/15/20 Encounter Time: 13:00 Subjective: Patient eating well. No more nausea or vomiting. Awaiting HIDA scan results. - Objective Vital Signs & Weight: Vital Signs (12 hours) Temp Pulse Resp BP BP Pulse Ox 07/15/20 07:42 98.3 F 55 L 16 121/68 100 07/15/20 03:13 98.5 F 52 L 16 110/68 98 Weight Admit Weight 158 lb 11.2 oz Weight 158 lb 1.6 oz I&O: 07/14/20 07/15/20 07/16/20 06:59 06:59 06:59 Intake Total 3201 Output Total 1700 Balance 1501 Result Diagrams: 07/15/20 04:34 07/15/20 12:16 Hospitalist ROS - Review of Systems Constitutional: denies: fever, chills Respiratory: denies: cough, shortness of breath Cardiovascular: denies: chest pain, palpitations Gastrointestinal: denies: nausea, vomiting, abdominal pain - Medication Medications: Active Medications Generic Name Dose Route Start Last Admin Trade Name Freq PRN Reason Stop Dose Admin Atenolol 25 mg 07/12/20 09:00 07/14/20 09:42 Atenolol 25 Mg Tab PO Not Given DAILY LOCO Cyanocobalamin 1,000 mcg 07/14/20 09:00 07/14/20 09:46 Cyanocobalamin (Vitamin B-12) 1,000 Mcg Tab PO 1,000 mcg DAILY LOCO Administration Sodium Chloride 1,000 mls @ 100 mls/hr 07/11/20 12:30 07/14/20 21:38 Normal Saline 0.9% IV 1,000 mls .Q10H LOCO Administration Metoclopramide HCl 5 mg 07/11/20 19:43 07/11/20 20:18 Metoclopramide Hcl 10 Mg/2 Ml Vial IVP 5 mg Q6H PRN Administration Nausea/Vomiting Ondansetron HCl 4 mg 07/11/20 12:27 07/12/20 23:40 Ondansetron Pf 4 Mg/2 Ml Vial IVP 4 mg Q6H PRN Administration Nausea/Vomiting Pantoprazole Sodium 40 mg 07/12/20 09:00 07/14/20 09:43 Pantoprazole 40 Mg Vial IVP 40 mg DAILY LOCO Administration - Exam General Appearance: NAD, awake alert ENT: moist mucosa Heart: RRR, no murmur, no gallops, no rubs Respiratory: CTAB, no wheezes, no rales, no ronchi Gastrointestinal: soft, non-tender, non-distended, normal bowel sounds Psychiatric: normal affect, normal behavior, A&O x 3 Hosp A/P - Plan (1) Nausea and vomiting Code(s): R11.2 - NAUSEA WITH VOMITING, UNSPECIFIED Status: Acute (2) Macrocytic anemia with vitamin B12 deficiency Code(s): D51.9 - VITAMIN B12 DEFICIENCY ANEMIA, UNSPECIFIED Status: Acute (3) Weight loss Status: Chronic (4) Hypertension Code(s): I10 - ESSENTIAL (PRIMARY) HYPERTENSION Status: Chronic (5) CAD (coronary artery disease) Code(s): I25.10 - ATHSCL HEART DISEASE OF [place] CORONARY ARTERY W/O ANG PCTRS Status: Acute (6) Hypokalemia Code(s): E87.6 - HYPOKALEMIA Status: Acute - Plan * Nausea and vomiting with Weight loss- ? etiology- symptoms are a bit better controlled. EGD without gross abnormality. US and small bowel follow through without significant abnormality. * Macrocytic anemia- his B12 level is low. This may be due to poor oral intake, given the nausea and vomiting for the past month. with limited oral inatke. Gave a dose of vitamin B12 IM daily x2, can transition to oral Vit B12 now. Hemoglobin improved after transfusion. * HTN- blood pressure is stable * CAD- stable * Hypokalemia- from GI losses- continue replacing * Home after HIDA scan if normal and f/u in GI clinic.
[2020-07-15] MEDS: Pantoprazole 40 MG VIAL IVP SCH (12:02)
[2020-07-15] MEDS: Cyanocobalamin (Vitamin B-12) 1,000 MCG TAB PO SCH (12:02)
[2020-07-15] MEDS: Sodium Chloride 0.9% 1,000 ML IV SCH (12:06)
[2020-07-15] MEDS: Atenolol 25 MG TAB PO SCH (12:07)
[2020-07-15 13:14] LABS: ALT (SGPT) 21 U/L (8-55); AST (SGOT) 22 U/L (5-34); Albumin 3.9 g/dL (3.5-5.0); Alkaline Phosphatase 46 U/L (40-110); Anion Gap 11 mmol/L (10-20); BUN (Urea Nitrogen) 4 mg/dL (8.4-25.7); Bilirubin, Direct 0.6 mg/dL (0.1-0.3); Bilirubin, Total 1.3 mg/dL (0.2-1.2); Calc. Creatinine Clearance 129 mL/min (70-130); Calcium 8.3 mg/dL (7.8-10.44); Carbon Dioxide 24 mmol/L (22-29); Chloride 107 mmol/L (98-107); Globulin 2.4 g/dL (2.4-3.5); Glucose 128 mg/dL (70-105); Potassium 3.3 mmol/L (3.5-5.1); Protein, Total 6.3 g/dL (6.0-8.3); Sodium 139 mmol/L (136-145)
--- NOTE | 2020-07-15 15:20 | NM ---
HEPATOBILIARY SCAN: 07/15/20 HISTORY: Biliary sludge. Nausea and vomiting, elevated bilirubin. RADIOPHARMACEUTICAL: 4.9 millicuries technetium 99m-Mebrofenin injected intravenously. CCK-8: Patient was pretreated with 1.4 mcg of CCK-8 intravenously 15 minutes prior to the injection o f the radiopharmaceutical. The patient was also infused with 1.4 mcg of CCK-8 over 13 minutes on fill ing of the gallbladder. FINDINGS: There is good tracer extraction about the liver with prompt excretion into the biliary tract and smal l bowel loops are normal. Filling of the gallbladder. The calculated gallbladder ejection fraction following CCK-8 administration is 70%. IMPRESSION: Normal exam. POS: AH
[2020-07-15 15:38] VITALS: BP 145/82; TEMP 98.1
[2020-07-15] MEDS ORDERED: Clarithromycin 500 MG TAB PO SCH (21:00)
[2020-07-15] MEDS ORDERED: AMOXicillin 250 MG CAP PO SCH (21:00)
--- NOTE | 2020-07-17 23:19 | PQF ---
Dear : Georges Parsons [birth year] Please exercise your independent, professional judgment in responding to the clarification form. Clinical indicators are provided on the bottom of this form for your review Can you please further clarify the nutritional status of the patient? Please check appropriate box(es): [ X ] Protein Calorie Malnutrition: [ ] Mild [ ] Moderate [ X ] Severe [ ] Other Malnutrition (please specify) [ ] Underweight without malnutrition [ ] Cachexia [ ] Other diagnosis [ ] Unable to determine Physician Signature: Date/Time: For continuity of documentation, please document condition throughout progress notes and discharge summary. Thank You. To be completed by CDI/Coding staff for physician review: Present Clinical Indicators - Signs / Symptoms / Labs Results and Location in Medical Record [ x ] Suggestive of severe malnutrition in the context of acute illness Nutritional assessment 07/15 [ x ] Severely limited PO due to intolerance for the last month Nutritional assessment 07/15 [ x ] 18.2% weight loss Nutritional assessment 07/15 [ x ] BMI 24.8 Nutritional assessment 07/15 [ x ] Nausea and vomiting, jennifer satiety OP report pg.1 [ x ] Reported 20 pound weight loss PN 07/13 pg.1 [ x ] B12 insufficiency PN 07/13 pg.1 Present Risk Factors Results and Location in Medical Record [ x ] Severe anemia Op report pg.1 [ x ] Duodenitis PN pg.1 [ x ] CAD H and P pg.1 [ x ] HTN H and P pg.1 [ x ] HLD H and P pg.1 [ x ] Hx of [place] H and P pg.1 Present Treatments Results and Location in Medical Record [ x ] Dietary consult Nutritional assessment 07/15 [ x ] Nutritional supplements Nutritional assessment 07/15 [ x ] IV Fluids MAR [ x ] EGD with biopsy OP report pg.1 [ x ] Cyanocobalamin 100mg IV MAR CDS/Per Diem Interpreter Signature: Tee Dean Phone #: ext [phone] Date 07/17/2020 Moderate Malnutrition (in acute illness) ? Energy Intake: <75% of estimated energy requirement for > 7 days ? Weight Loss: 1-2%/1 week; 5%/ 1 month; 7.5%/3 months ? Other: mild body fat loss; mild muscle mass loss; mild fluid accumulation; Severe Malnutrition (in acute illness) ? Energy Intake: ? 50% of estimated energy requirement for ? 5 days ? Weight Loss: >2%/1 week; >5%/1 month; >7.5%/3 months ? Other: moderate body fat loss; moderate muscle mass loss; moderate- severe fluid accumulation; measurably reduced meter tester strength Moderate Malnutrition (in chronic illness) ? Energy Intake: <75% of estimated energy requirement for ?1 month ? Weight Loss: 5%/1 month; 7.5%/3 months; 10%/6 months; 20%/1 year ? Other: mild body fat loss; mild muscle mass loss; mild fluid accumulation Severe Malnutrition (in chronic illness) ? Energy Intake: ?75% of estimated energy requirement for ?1 month ? Weight Loss: >5%/1 month; >7.5%/3 months; >10%/6 months; >20%/1 year ? Other: severe body fat loss; severe muscle mass loss; severe fluid accumulation; measurably reduced meter tester strength This is a permanent part of the Medical Record [facility]
--- NOTE | 2020-07-17 23:20 | PQF ---
Dear : Georges Parsons Date 07/17/2020 Please exercise your independent, professional judgment in responding to the clarification form. Clinical indicators are provided on the bottom of this form for your review Can you please further clarify the etiology of Nausea and vomiting Please check appropriate box(es): [ ] Intraepithelial lymphocytosis [ X ] H. pylori [ ] Celiac disease [ ] Duodenitis [ ] Other diagnosis please specify [ ] Unable to determine Physician Signature: Date/Time: For continuity of documentation, please document condition throughout progress notes and discharge summary. Thank You. To be completed by CDI/Coding staff for physician review: Present Clinical Indicators - Signs / Symptoms / Labs Results and Location in Medical Record [ x ] Presents with nausea and vomiting H and P pg.1 [ x ] Nausea, vomiting, unable to take PO of unknown etiology Hospitalist PN pg.1 [ x ] Differential diagnosis includes gastritis and ulcer process Hospitalist PN pg.1 [ x ] Intraepithelial lymphocytosis Pathology report pg.1 [ x ] Helicobacter pylori chronic active gastritis Pathology report pg.1 [ x ] Duodenitis, celiac disease remain differential PN pg.1 [ x ] Positive of H. Pylori Hospitalist PN pg.1 Present Risk Factors Results and Location in Medical Record [ x ] HTN H and P pg.1 [ x ] Early satiety OP report pg.1 [ x ] HLD H and P pg.1 [ x ] Hx of [place] H and P pg.1 Present Treatments Results and Location in Medical Record [ x ] Protonix IV [ x ] EGD with biopsy OP report pg.1 [ x ] IV antibiotics [ x ] IV Fluids [ x ] GI Consult Dr. Jordan 07/11 [ x ] Abdomen ultrasound Abdomen ultrasound 07/13 CDS/Registered Nurse Fetal Signature: Tee Dean Phone #: ext [phone] Date 07/17/2019 This is a permanent part of the Medical Record [facility]
--- NOTE | 2020-07-18 14:43 | DIS ---
DATE OF ADMISSION: 07/11/2020 DATE OF DISCHARGE: 07/15/2020 PRIMARY CARE PHYSICIAN: Annie Garrett MD REASON FOR ADMISSION: Intractable nausea and vomiting with abnormal liver tests. DISCHARGE DIAGNOSES: 1. Nausea and vomiting, resolved. 2. Macrocytic anemia with vitamin B12 deficiency. 3. Helicobacter pylori gastritis. 4. Weight loss. 5. Hypertension. 6. Coronary artery disease. PROCEDURES: 1. CT scan of the abdomen and pelvis with IV contrast showing no acute abnormalities. 2. Esophagogastroduodenoscopy with biopsy showing some hemorrhage around the cardia consistent with vomiting injury, also with some slight scalloping in the bulb of the duodenum and proximal second portion of the duodenum with biopsies taken to rule out celiac disease and biopsies eventually came back positive for H Helicobacter. 3. Ultrasound of the right upper quadrant and gallbladder showing prominent sludge ball, but no evidence of cholelithiasis, cholecystitis, or biliary dilatation. 4. X-ray of the small bowel with follow-through showing no abnormalities. 5. HIDA scan showing normal gallbladder movement and ejection fraction normal study. CONSULTATIONS: Gastroenterology, Dr. Jordan. SUMMARY OF HOSPITAL COURSE: This is a 55-year-old male with a known history of coronary artery disease and a four-vessel bypass, also with hypertension, dyslipidemia, who came in with nausea and vomiting. This has been progressing over the past few days. He has had some weight loss. Also noticed some dysuria, but that had resolved. The patient was noted to have some abnormal liver function tests and a slightly elevated bilirubin in the emergency room. He was given antiemetic medications. GI was consulted. The patient had procedures done as above. His symptoms improved with IV fluids and antiemetics. The patient was found to be significantly anemic with significantly elevated MCV. Vitamin test showed a deficiency of vitamin B12 and he was given 2 days of IM injections followed by oral supplementation. The patient also had a couple of units of packed red blood cells transfused with an improvement in his blood count and resolution of all of his symptoms. He was doing well on the day of discharge. His H pylori test did come back positive, so he was started on amoxicillin and clarithromycin and Protonix to be continued for 2 weeks. DISCHARGE MANAGEMENT: Discharged home. ACTIVITY: As tolerated. DIET: Healthy heart diet. FOLLOWUP: The patient is to follow up with Dr. Jordan in the GI clinic in 2 to 3 weeks and with his primary care provider in the next week. DISCHARGE MEDICATIONS: 1. Amoxicillin 1000 mg twice a day for 2 weeks. 2. Clarithromycin 500 mg twice a day for 2 weeks. 3. Protonix 40 mg daily for 2 weeks. 4. Vitamin B12 of 1000 mcg p.o. daily, 30 tablets dispensed. 5. Zofran 4 mg every 6 hours as needed for nausea and vomiting, 15 tablets dispensed. 6. Continue atenolol 25 mg daily. 7. Aspirin 325 mg daily. 8. Fish oil 2000 mg daily. 9. Lovastatin 10 mg daily. TIME SPENT: Arranging the details of this discharge took 35 minutes. Job ID: [id number]
[2020-07-19 17:37] LABS: EliA Celiac New Method **** NEW METHOD ****; t-Transglutaminase (tTG) IgA 0.7 EliAU/mL (<7 Negative); t-Transglutaminase (tTG) IgG Less than 0.6 EliAU/mL (<7 Negative)
== END 2020-07-15 16:35 | disposition home or self-care (01) | DRG 371 ==
LOC: ERS 07:22 → 2NO 12:22
PROVIDERS: ADMIT Family Medicine; ATTEND Emergency Medicine
PROC: 0DB98ZX Excision of Duodenum, Via Natural or Artificial Opening Endoscopic, Diagnostic (ICD-10-PCS; principal; 2020-07-12)
PROC: 0DB78ZX Excision of Stomach, Pylorus, Via Natural or Artificial Opening Endoscopic, Diagnostic (ICD-10-PCS; 2020-07-12)
PROC: 0DB88ZX Excision of Small Intestine, Via Natural or Artificial Opening Endoscopic, Diagnostic (ICD-10-PCS; 2020-07-12)
PROC: 30233N1 Transfusion of Nonautologous Red Blood Cells into Peripheral Vein, Percutaneous Approach (ICD-10-PCS; 2020-07-12)
DX: A04.8 Other specified bacterial intestinal infections (principal); E43 Unspecified severe protein-calorie malnutrition; D72.820 Lymphocytosis (symptomatic); D51.9 Vitamin B12 deficiency anemia, unspecified; Z20.828 Contact with and (suspected) exposure to other viral communicable diseases; Z23 Encounter for immunization; I10 Essential (primary) hypertension; E78.00 Pure hypercholesterolemia, unspecified; D72.819 Decreased white blood cell count, unspecified; E78.5 Hyperlipidemia, unspecified; D75.89 Other specified diseases of blood and blood-forming organs; I25.10 Atherosclerotic heart disease of native coronary artery without angina pectoris; E87.6 Hypokalemia; R68.81 Early satiety; K82.8 Other specified diseases of gallbladder; Z68.24 Body mass index [BMI] 24.0-24.9, adult; Z79.82 Long term (current) use of aspirin; Z79.899 Other long term (current) drug therapy; I25.2 Old myocardial infarction; Z95.1 Presence of aortocoronary bypass graft
CPT/HCPCS: 36415; 36430; 71046; 74177; 74250; 76705; 78227; 80048; 80053; 81003; 81015; 82247; 82248; 82270; 82607; 82728; 82746; 83516; 83540; 83550; 83690; 83735; 84484; 85025; 86780; 86850; 86900; 86901; 87635; 88305; 88312; 93005; 94760; 96374; A9537; C9113; J2405; J2704; J2765; J3420; P9016; Q9963; Q9967; U0003

== ENCOUNTER 2021-08-19 01:09 | Emergency (ER) | payer SELFPAY ==
[2021-08-19] MEDS ORDERED: Ondansetron PF 4 MG/2 ML Vial ONE (01:43)
[2021-08-19] MEDS ORDERED: Ketorolac Tromethamine 30 MG/ML VIAL ONE (01:43)
[2021-08-19 02:00] LABS: #Eosinphils 0.1 thou/uL (0.0-0.7); #Monocytes 0.4 thou/uL (0.11-0.59); #Neutrophils 7.3 thou/uL (1.40-6.50); %Basophils 0.5 % (0.0-1.0); %Eosinophils 0.8 % (0.0-10.0); %Lymphocytes 11.6 % (21.0-51.0); Hemoglobin 14.7 g/dL (14.0-18.0); Mean Corpuscular HGB CONC 34.6 g/dL (32.0-36.0); Mean Corpuscular Hemoglobin 30.8 pg (27.0-31.0); Mean Corpuscular Volume 89.1 fL (78.0-98.0); Mean Platelet Volume 9.1 fL (7.4-10.4); Platelet Count 163 thou/uL (130-400); RBC Distribution Width 11.8 % (11.5-14.5); Red Blood Cell (RBC) Count 4.77 mill/uL (4.70-6.10); White Blood Cell (WBC) Count 8.8 thou/uL (4.8-10.8)
[2021-08-19 02:18] LABS: ALT (SGPT) 32 U/L (8-55); AST (SGOT) 23 U/L (5-34); Albumin 4.3 g/dL (3.5-5.0); Alkaline Phosphatase 67 U/L (40-110); Anion Gap 13 mmol/L (10-20); BUN (Urea Nitrogen) 16 mg/dL (8.4-25.7); Bilirubin, Total 0.9 mg/dL (0.2-1.2); Calc. Creatinine Clearance 0 mL/min (70-130); Calcium 9.1 mg/dL (7.8-10.44); Carbon Dioxide 23 mmol/L (22-29); Chloride 105 mmol/L (98-107); Globulin 3.2 g/dL (2.4-3.5); Glucose 141 mg/dL (70-105); Lipase 30 U/L (8-78); Potassium 3.7 mmol/L (3.5-5.1); Protein, Total 7.5 g/dL (6.0-8.3); Sodium 137 mmol/L (136-145)
== END 2021-08-19 03:40 | disposition home or self-care (01) ==
LOC: ERS 01:09
DX: K83.8 Other specified diseases of biliary tract (principal); I10 Essential (primary) hypertension; E78.00 Pure hypercholesterolemia, unspecified; I25.2 Old myocardial infarction
CPT/HCPCS: 76705; 80053; 83690; 85025; 93005; 96374; 96375; J1885; J2405